=== PATIENT | male | born 2000 | race Two or more races ===

== ENCOUNTER 2018-04-19 21:26 | Emergency (ER) | payer OTHER ==
[~2018-04-19] VITALS: Ht 180.3 cm; Wt 60.1 kg
[2018-04-19 21:42] VITALS: BP 133/79
== END 2018-04-19 23:25 | disposition home or self-care (01) ==
LOC: ER 21:27
DX: J39.2 Other diseases of pharynx (principal)
CPT/HCPCS: 87081; 87880; 99283